=== PATIENT | female | born 1935 | race Hispanic/Latino ===

== ENCOUNTER 2018-08-24 22:15 | Observation (INO) | payer MEDICARE, OTHER ==
[~2018-08-24] VITALS: Ht 147.3 cm; Wt 43.5 kg
[2018-08-24 22:53] LABS: BASOPHILS % (AUTO) 0.6 % (0.0-5.0); EOSINOPHILS % (AUTO) 1.1 % (0.0-8.0); HEMATOCRIT 43.9 % (36-48); LYMPHOCYTES % (AUTO) 13.7 % (21.0-51.0); MEAN CORPUSCULAR HEMOGLOBIN 31.7 pg (27.0-33.0); MEAN CORPUSCULAR HGB CONC 33.9 g/dL (32.0-36.0); MEAN CORPUSCULAR VOLUME 93.5 fL (79-99); MONOCYTES % (AUTO) 11.7 % (3.0-13.0); NEUTROPHILS % (AUTO) 72.9 % (40.0-77.0); PLATELET COUNT (AUTO) 263 K/uL (130-400); WHITE BLOOD COUNT (AUTO) 9.4 K/uL (4.8-10.8)
[2018-08-24] MEDS ORDERED: ONDANSETRON HCL 4 MG/2 ML VIAL ONE (22:55)
[2018-08-24] MEDS ORDERED: MORPHINE SULFATE 4 MG/1ML SYG ONE (22:56)
[2018-08-24 23:08] LABS: CREATININE 0.6 mg/dL (0.5-1.5); POTASSIUM 3.4 mmol/L (3.5-5.1)
[2018-08-24 23:12] LABS: ALBUMIN 3.2 g/dL (3.5-5.0); BILIRUBIN,TOTAL 0.3 mg/dL (0.2-1.0); TOTAL PROTEIN, SERUM 6.1 g/dL (6.0-8.3)
[2018-08-24 23:41] LABS: APPEARANCE,URINE CLEAR (CLEAR); BILIRUBIN,URINE NEGATIVE (NEGATIVE); COLOR,URINE YELLOW (YELLOW); GLUCOSE, URINE (UA) NEGATIVE (NEGATIVE); KETONES,URINE NEGATIVE (NEGATIVE); LEUKOCYTE ESTERASE ,URINE NEGATIVE (NEGATIVE); NITRATE,URINE NEGATIVE (NEGATIVE); OCCULT BLOOD,URINE TRACE-INTACT (NEGATIVE); PH,URINE 5.5 (5.0-8.0); PROTEIN,URINE NEGATIVE (NEGATIVE); UROBILINOGEN,URINE 0.2 mg/dL (0.2-1.0)
[2018-08-24 23:44] LABS: BACTERIA,URINE None Seen /HPF (None Seen); RBC,URINE None Seen /HPF (0-1); SQUAMOUS EPITHELIAL CELL,UR Rare /HPF (0-2); WBC,URINE None Seen /HPF (0-1)
[2018-08-25 02:50] VITALS: BP 165/71
[2018-08-25] MEDS ORDERED: HYDROCODONE/ACETAMINOPHEN 5/325 MG TAB PO PRN (07:00)
[2018-08-25] MEDS ORDERED: ONDANSETRON HCL 4 MG/2 ML VIAL IVP PRN (07:00)
[2018-08-25] MEDS ORDERED: ACETAMINOPHEN 325 MG TAB PO PRN (07:00)
[2018-08-25] MEDS ORDERED: SODIUM CHLORIDE 0.9% 10 ML VIAL IVP PRN (07:00)
[2018-08-25 08:00] VITALS: BP 124/56
[2018-08-25] MEDS: PANTOPRAZOLE SODIUM 40 MG TABLET.DR PO SCH (08:09)
[2018-08-25 11:00] VITALS: BP 123/52
[2018-08-25 16:00] VITALS: BP 133/60
[2018-08-25] MEDS ORDERED: POTASSIUM CHLORIDE 20 MEQ ERTAB PO PRN (16:45)
[2018-08-25] MEDS ORDERED: POTASSIUM CHLORIDE 10% ELIXIR 20 MEQ/15 ML UDCUP PO PRN (16:45)
[2018-08-25] MEDS ORDERED: GLUCAGON 1MG KIT 1 MG ML IM PRN (16:45)
[2018-08-25] MEDS ORDERED: LIDOCAINE HCL-MPF 1% 2ML VIAL IVP PRN (16:45)
[2018-08-25] MEDS ORDERED: POTASSIUM CHLORIDE 20MEQ/100ML 100 ML IV PRN (16:45)
[2018-08-25] MEDS ORDERED: DEXTROSE 50%-WATER 50 ML DISP.SYRIN IV PRN (16:45)
[2018-08-25 20:00] VITALS: BP 143/66
[2018-08-25] MEDS: TRAMADOL /APAP 37.5MG/325MG TAB PO PRN (21:34)
[2018-08-26] VITALS: BP 148/66
[2018-08-26 04:00] VITALS: BP 144/69
[2018-08-26 05:04] LABS: CREATININE 0.7 mg/dL (0.5-1.5); POTASSIUM 3.8 mmol/L (3.5-5.1); THYROID STIMULATING HORMONE 3.06 uIU/mL (0.36-3.74)
[2018-08-26 07:48] VITALS: BP 149/60
[2018-08-26] MEDS: TRAMADOL /APAP 37.5MG/325MG TAB PO PRN ×3 (08:26→23:19)
[2018-08-26] MEDS: PANTOPRAZOLE SODIUM 40 MG TABLET.DR PO SCH (08:26)
[2018-08-26 12:00] VITALS: BP 138/66
[2018-08-26] MEDS ORDERED: MAGNESIUM HYDROXIDE 30 ML/UDCUP PO PRN (13:00)
[2018-08-26 16:00] VITALS: BP 107/80
[2018-08-26 20:00] VITALS: BP 142/79
[2018-08-27] VITALS: BP 123/72
[2018-08-27 04:00] VITALS: BP 150/70
[2018-08-27 07:30] VITALS: BP 134/70
[2018-08-27] MEDS: PANTOPRAZOLE SODIUM 40 MG TABLET.DR PO SCH (08:58)
[2018-08-27 11:00] VITALS: BP 135/71
[2018-08-27] MEDS ORDERED: TRAM-355 PO (11:06)
[2018-08-27 16:00] VITALS: BP 155/69
== END 2018-08-27 17:00 ==
LOC: EDH 22:15 → EDHIP 08-25 00:39 → INTOOBSV 08-25 00:39 → 4BH 08-25 01:53
PROVIDERS: ADMIT Internal Medicine; ATTEND Internal Medicine
DX: S22.41XA Multiple fractures of ribs, right side, initial encounter for closed fracture (principal); J44.9 Chronic obstructive pulmonary disease, unspecified; I10 Essential (primary) hypertension; E66.9 Obesity, unspecified; F03.90 Unspecified dementia, unspecified severity, without behavioral disturbance, psychotic disturbance, mood disturbance, and anxiety; R29.6 Repeated falls; R63.4 Abnormal weight loss; K58.9 Irritable bowel syndrome, unspecified; W19.XXXA Unspecified fall, initial encounter; Y93.89 Activity, other specified; Y92.89 Other specified places as the place of occurrence of the external cause; Y99.8 Other external cause status; Z77.22 Contact with and (suspected) exposure to environmental tobacco smoke (acute) (chronic); Z80.0 Family history of malignant neoplasm of digestive organs; Z80.8 Family history of malignant neoplasm of other organs or systems
CPT/HCPCS: 36415 ×2; 71045 ×2; 71250; 74176; 80048; 80053; 81001; 82550; 84443; 84484; 85025; 93005; 97039 ×3; 97161; 99284; G0378 ×64; G8978; G8979; G8980; G8981; G8982; G8983; J2270; J2405

== ENCOUNTER 2018-09-12 20:45 | Inpatient (IN) | payer OTHER | END 2018-09-18 22:00 | disposition home or self-care (01) | LOC: EDH 20:45 → EDHIP 09-13 00:55 → 3DH 09-13 01:42 | PROC: 0WQF0ZZ Repair Abdominal Wall, Open Approach (ICD-10-PCS; principal; 2018-09-13 10:15) | DX: A41.9 Sepsis, unspecified organism (principal); G93.41 Metabolic encephalopathy; K43.6 Other and unspecified ventral hernia with obstruction, without gangrene; K43.0 Incisional hernia with obstruction, without gangrene ==

== ENCOUNTER 2019-02-17 23:39 | Emergency (ER) | payer OTHER ==
[~2019-02-17 23:39] MED LIST: ALBU8.5H8 IH; FLUT1BLS3 PO; LORA10CA9 PO
== END 2019-02-18 01:53 | disposition home or self-care (01) ==
LOC: EDH 23:39
DX: S00.83XA Contusion of other part of head, initial encounter (principal); J44.9 Chronic obstructive pulmonary disease, unspecified; I10 Essential (primary) hypertension; E78.5 Hyperlipidemia, unspecified; G30.9 Alzheimer's disease, unspecified; F02.80 Dementia in other diseases classified elsewhere, unspecified severity, without behavioral disturbance, psychotic disturbance, mood disturbance, and anxiety; Z90.49 Acquired absence of other specified parts of digestive tract; W08.XXXA Fall from other furniture, initial encounter; Y93.89 Activity, other specified; Y92.89 Other specified places as the place of occurrence of the external cause; Y99.8 Other external cause status
CPT/HCPCS: 70450; 72125